=== PATIENT | female | born 1990 | race Two or more races ===

== ENCOUNTER 2022-03-02 23:10 | Emergency (ER) | payer SELFPAY ==
[~2022-03-02] VITALS: Ht 160 cm; Wt 69.0 kg
[2022-03-02 23:10] VITALS: BP 163/91
[2022-03-03] MEDS ORDERED: IBUP800T26 PO (02:51)
[2022-03-03] MEDS ORDERED: CEPH-510 PO (02:51)
== END 2022-03-03 03:14 | disposition home or self-care (01) ==
LOC: ER 23:10
DX: L03.011 Cellulitis of right finger (principal); E11.9 Type 2 diabetes mellitus without complications